=== PATIENT | male | born 1955 | race Caucasian/White ===

== ENCOUNTER 2019-12-11 15:57 | Emergency (ER) | payer SELFPAY ==
[2019-12-11] MEDS ORDERED: LORazepam TAB(*) 1 MG PO ONE (16:12)
[2019-12-11] MEDS ORDERED: Acetaminophen TAB* 325 MG PO ONE (16:16)
[2019-12-11] MEDS ORDERED: Lorazepam PYXIS KEY PRN (16:19)
[2019-12-11] MEDS ORDERED: LORazepam INJ* 2 MG/ML 1 ML VIAL IV PUSH ONE (16:19)
[2019-12-11] MEDS ORDERED: NS 0.9% 1000 ML** 1,000 ML IV ONE (16:20)
[2019-12-11] MEDS ORDERED: Lorazepam PYXIS KEY ONE (16:21)
--- NOTE | 2019-12-11 16:38 | ED ---
HPI Chest Pain - HPI Summary HPI Summary: Pt is a 64yo M with a hx of anxiety presenting to the ED with chest pain, L sided head pain, L sided arm pain and L leg pain. He states symptoms have been present x 4 years since his mother . He states sxs have been intermittent. He was also sent here to assess for confusion, however denies this and does not appear to be confused for provider. He states he believes this to be anxiety. He had a 2 day stay on the cardiac unit at [facility] 12/01-12/03 with a full negative workup including CT scan and cardiac workup (per patient. ) Pt states he feels this is anxiety and when his symptoms become worse, his body reacts with pain. Takes tylenol for pain daily and hydroxyzine for anxiety. Uses a walker and a cane daily for being "off-balanced" for several years. - History of Current Complaint Chief Complaint: EDChestWallPain Time Seen by Provider: 12/11/19 15:59 Hx Obtained From: Patient Onset/Duration: Started Hours Ago Timing: Constant Current Severity: Mild Pain Intensity: 9 Pain Scale Used: 0-10 Numeric Chest Pain Radiates: No Aggravating Factor(s): Nothing Alleviating Factor(s): Nothing - Risk Factors Pulmonary Embolism Risk Factors: Negative TAD Risk Factors: Negative - Allergy/Home Medications Allergies/Adverse Reactions: Allergies Allergy/AdvReac Type Severity Reaction Status Date / Time morphine Allergy See Comment Verified 12/11/19 17:21 sulfamethoxazole Allergy See Comment Verified 12/11/19 17:21 [From Bactrim] trimethoprim [From Bactrim] Allergy See Comment Verified 12/11/19 17:21 Home Medications: Home Medications Acetaminophen [Acetaminophen Extra Strength] 1,000 mg PO Q6HR PRN 12/11/19 [ History Confirmed 12/11/19] Aspirin EC TAB* [Ecotrin EC Low Dose 81 MG*] 81 mg PO DAILY 12/11/19 [History Confirmed 12/11/19] DULoxetine DR CAP* [Cymbalta CAP*] 20 mg PO DAILY 12/11/19 [History Confirmed ] Tamsulosin CAP* [Flomax CAP*] 0.4 mg PO DAILY 12/11/19 [History Confirmed ] hydrALAZINE TAB* [Apresoline TAB*] 50 mg PO Q8HR 12/11/19 [History Confirmed ] PMH/Surg Hx/FS Hx/Imm Hx Previously Healthy: Yes Endocrine/Hematology History: Denies: Hx Diabetes Cardiovascular History: Denies: Hx Congestive Heart Failure, Hx Hypertension Respiratory History: Denies: Hx Asthma - Surgical History Surgery Procedure, Year, and Place: right lung surgery 2001, hernia repair - Immunization History Hx Pertussis Vaccination: No Infectious Disease History: No Infectious Disease History: Reports: 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, back, chest dx at [facility] Denies: Traveled Outside the [place] in Last 30 Days - Social History Occupation: Unemployed Lives: With Family Alcohol Use: Occasionally Hx Substance Use: No Substance Use Type: Reports: Excessive Caffeine Hx Tobacco Use: No Smoking Status (MU): Former Smoker Review of Systems Negative: Fever, Chills, Fatigue, Skin Diaphoresis Positive: Chest Pain Negative: Shortness Of Breath, Cough Negative: Arthralgia, Myalgia Skin: Negative Neurological/Mental Status: Negative All Other Systems Reviewed And Are Negative: Yes Physical Exam Triage Information Reviewed: Yes Vital Signs On Initial Exam: Initial Vitals Temp Pulse Resp BP Pulse Ox 97.5 F 59 22 163/86 99 12/11/19 16:07 12/11/19 16:07 12/11/19 16:07 12/11/19 16:07 12/11/19 16:07 Vital Signs Reviewed: Yes Appearance: Positive: Well-Appearing, Well-Nourished Skin: Positive: Warm, Skin Color Reflects Adequate Perfusion Head/Face: Positive: Normal Head/Face Inspection Eyes: Positive: EOMI, JASMIN, Conjunctiva Clear Neck: Positive: Supple, No Lymphadenopathy Respiratory/Lung Sounds: Positive: Clear to Auscultation, Breath Sounds Present Cardiovascular: Positive: Pulses are Symmetrical in both Upper and Lower Extremities Musculoskeletal: Positive: Normal, Limited @ Neurological: Positive: Sensory/Motor Intact, Alert, Oriented to Person Place, Time, Reflexes Intact, Normal Gait, Facial Symmetry. Negative: Disoriented, Slurred Speech Psychiatric: Positive: Normal, Affect/Mood Appropriate AVPU Assessment: Alert Procedures - Sedation Patient Received Moderate/Deep Sedation with Procedure: No Diagnostics - Vital Signs Vital Signs Temp Pulse Resp BP Pulse Ox 12/11/19 16:20 59 19 97 12/11/19 16:07 97.5 F 56 21 163/86 99 - Laboratory Result Diagrams: 12/11/19 16:29 12/11/19 16:29 Lab Statement: Any lab studies that have been ordered have been reviewed, and results considered in the medical decision making process. Chest Pain Course/Dx - Course Course Of Treatment: Labs obtained including a troponin of 0.00. EKG obtained which shows a sinus bradycardia. Patient was given Ativan 0.5 and fluids. Labs are WNL. Pt had a full cardiac workup last week at [facility] and HEART SCORE = low. Pt discharged with dx of pain and anxiety. No evidence of confusion. Pt states he feels at his baseline, however d/t the anxiety attacks (2) last night, his healthcare worker and sister were concerned with stroke or seizure. No hx of seizures or strokes. No facial droop noted. No neuro sxs. Pt discharged in good condition. Will f/u with PCP. - Diagnoses Provider Diagnoses: Pain, Anxiety - Critical Care Time Critical Care Statement: Critical care time is provided exclusive of any time spent performing procedures. Discharge ED - Sign-Out/Discharge Documenting (check all that apply): Patient Departure - Discharge Plan Condition: Stable Disposition: HOME Patient Education Materials: Anxiety (ED) Referrals: Jake Gramajo MD [Medical Doctor] - No Primary Care Phys,NOPCP [Primary Care Provider] - Additional Instructions: Continue with your anxiety medication at home Please follow up with neurology regarding your L sided pain and weakness that has been present for several years You have no evidence of stroke like symptoms or seizure activity as discussed Your lab work on todays visit was OK I recommend following up with your PCP as well - as soon as possible (next week) - Billing Disposition and Condition Condition: STABLE Disposition: Home
[2019-12-11 16:53] LABS: ABS Basophils 0.1 10^3/ul (0-0.2); ABS Eosinophils 0.1 10^3/ul (0-0.6); ABS Lymphocytes 0.7 10^3/ul (1.0-4.8); ABS Monocytes 0.2 10^3/ul (0-0.8); ABS Neutrophils 2.7 10^3/ul (1.5-7.7); Eosinophil % 2.4 %; Hematocrit 35 % (42-52); Hemoglobin 12.2 g/dL (14.0-18.0); Lymphocyte % 19.3 %; Mean Corpuscular HGB Conc 35 g/dL (31-36); Mean Corpuscular Hemoglobin 32 pg (27-31); Mean Corpuscular Volume 93 fL (80-94); Mean Platelet Volume 7.4 fL (7.4-10.4); Platelet Count 225 10^3/uL (150-450); Red Blood Count 3.79 10^6 /uL (4.18-5.48); Red Cell Distribution Width 14 % (10-15); White Blood Count 3.8 10^3/uL (3.5-10.8)
[2019-12-11 17:11] LABS: Albumin 3.7 g/dL (3.2-5.2); Albumin/Globulin Ratio 1.9 (1-3); BUN/Creatinine Ratio 15.9 (8-20); Calcium 8.3 mg/dL (8.6-10.3); EGFR African American 105.2 (>60); EGFR Non-African American 86.9 (>60); Total Bilirubin 0.6 mg/dL (0.2-1.0); Total Protein 5.7 g/dL (6.4-8.9)
[2019-12-11 17:24] VITALS: BP 134/73
== END 2019-12-11 17:22 | disposition home or self-care (01) ==
LOC: ED 15:57
DX: F41.9 Anxiety disorder, unspecified (principal); R07.9 Chest pain, unspecified; R51 Headache; M79.602 Pain in left arm; M79.605 Pain in left leg; Z88.6 Allergy status to analgesic agent; Z88.2 Allergy status to sulfonamides; Z79.82 Long term (current) use of aspirin; Z86.14 Personal history of Methicillin resistant Staphylococcus aureus infection; Z87.891 Personal history of nicotine dependence; R94.31 Abnormal electrocardiogram [ECG] [EKG]
CPT/HCPCS: 36415; 80053; 84484; 85025; 93005; 96361; 96374; 99283; A9270-GY; J2060

== ENCOUNTER 2022-10-14 05:10 | Observation (INO) ==
[2022-10-14] MEDS ORDERED: Aspirin EC 81 mg TAB.EC (enteric coated) PO SCH (09:00)
[2022-10-14] MEDS ORDERED: Isosorbide Mononit ER 30mg TAB PO SCH (09:00)
[2022-10-14] MEDS ORDERED: Ondansetron 4 mg VIAL 2 MG/ML 2 ml VIAL IV PRN (12:21)
[2022-10-14] MEDS: NS 0.9% 1000 ml BAG 1,000 ML IV SCH ×2 (12:55→21:05)
[2022-10-14] MEDS ORDERED: NS 0.9% IV ONE ×2 (20:20→20:50)
[2022-10-14] MEDS: Atropine 1 MG/ML INJ 1 ML VIAL IV PUSH PRN (21:06)
[2022-10-14] MEDS: Heparin 5000 UNITS/ML 1 mL VIAL SUBCUT SCH (21:46)
[2022-10-14 22:09] LABS: Calcium 8.2 mg/dL (8.6-10.3); Creatinine, Serum 1.1 mg/dL (0.67-1.17); Magnesium 1.8 mg/dL (1.9-2.7); Potassium 4.3 mmol/L (3.5-5.0); eGFR CKD-EPI 73.1 (>60)
[2022-10-14] MEDS ORDERED: Magnesium Sulfate 2 gm BAG 2 GM/50 ML BAG IVPB ONE (22:12)
[2022-10-14 22:52] LABS: High Sensitivity Troponin 1 Hr 29 pg/mL (<20)
[2022-10-15] MEDS ORDERED: NS 0.9% 500 ml BAG 500 ML IV ONE (02:54)
[2022-10-15] MEDS: Atropine 1 MG/ML INJ 1 ML VIAL IV PUSH PRN (03:16)
[2022-10-15] MEDS: NS 0.9% 1000 ml BAG 1,000 ML IV SCH (04:19)
[2022-10-15 06:22] LABS: ABS Basophils 0.1 10^3/ul (0-0.2); ABS Eosinophils 0.2 10^3/ul (0-0.6); ABS Monocytes 0.4 10^3/ul (0-0.8); ABS Neutrophils 3.4 10^3/ul (1.5-7.7); Eosinophil % 3.7 %; Hematocrit 38 % (42-52); Hemoglobin 12.9 g/dL (14.0-18.0); Lymphocyte % 19.7 %; Mean Corpuscular HGB Conc 34 g/dL (31-36); Mean Corpuscular Hemoglobin 31 pg (27-31); Mean Corpuscular Volume 93 fL (80-94); Mean Platelet Volume 8.3 fL (7.4-10.4); Platelet Count 161 10^3/uL (150-450); Red Blood Count 4.13 10^6 /uL (4.18-5.48); Red Cell Distribution Width 13 % (10-15)
[2022-10-15 06:27] LABS: INR 1.25 (0.88-1.18)
[2022-10-15 07:35] VITALS: BP 109/42
[2022-10-15 07:42] LABS: Calcium 8.3 mg/dL (8.6-10.3)
[2022-10-15 07:48] LABS: Creatinine, Serum 1.13 mg/dL (0.67-1.17); eGFR CKD-EPI 70.8 (>60)
[2022-10-15 08:14] LABS: TSH Ultra Thyroid Stim Horm 6.62 mcIU/mL (0.34-5.60)
[2022-10-15 08:27] LABS: Potassium 4.5 mmol/L (3.5-5.0)
[2022-10-15] MEDS ORDERED: Enoxaparin 40 MG/0.4 ML SYR SUBCUT SCH (09:00)
[2022-10-15 11:40] LABS: PSA Screening Total 1.25 ng/mL (0-4.000)
[2022-10-15] MEDS: Heparin 5000 UNITS/ML 1 mL VIAL SUBCUT SCH (11:42)
[2022-10-15 11:49] LABS: Theophylline 5.6 mcg/mL (10-20.0)
== END 2022-10-15 16:13 | disposition left against medical advice (07) ==
LOC: EDHOLD 05:10 → ED 05:10 → SUATTDRO 06:13 → MEDTELE 12:41
PROVIDERS: ADMIT Hospitalist; ATTEND Internal Medicine

== ENCOUNTER 2022-10-17 18:10 | Inpatient (IN) ==
[2022-10-17 18:34] LABS: Hematocrit 32 % (42-52); Hemoglobin 11.2 g/dL (14.0-18.0); Mean Corpuscular HGB Conc 35 g/dL (31-36); Mean Corpuscular Hemoglobin 32 pg (27-31); Mean Corpuscular Volume 92 fL (80-94); Mean Platelet Volume 7.9 fL (7.4-10.4); Platelet Count 140 10^3/uL (150-450); Red Blood Count 3.52 10^6 /uL (4.18-5.48); Red Cell Distribution Width 13 % (10-15); White Blood Count 8.3 10^3/uL (3.5-10.8)
[2022-10-17 18:48] LABS: INR 1.59 (0.88-1.18)
[2022-10-17 19:03] LABS: ABS Eosinophils 0.1 10^3/ul (0-0.6); ABS Lymphocytes 0.7 10^3/ul (1.0-4.8); ABS Monocytes 0.7 10^3/ul (0-0.8); ABS Neutrophils 6.8 10^3/ul (1.5-7.7); Eosinophil % 0.8 %; Lymphocyte % 8.8 %
[2022-10-17 19:22] LABS: Albumin 3.6 g/dL (3.2-5.2); Calcium 8.3 mg/dL (8.6-10.3); Creatinine, Serum 1.25 mg/dL (0.67-1.17); Globulin 1.8 g/dL (2-4); Potassium 4.1 mmol/L (3.5-5.0); Total Bilirubin 0.6 mg/dL (0.2-1.0); Total Protein 5.4 g/dL (6.4-8.9); eGFR CKD-EPI 62.7 (>60)
[2022-10-17 20:10] LABS: High Sensitivity Troponin 1 Hr 10 pg/mL (<20)
[2022-10-17] MEDS ORDERED: Heparin 5000 UNITS/ML 1 mL VIAL SUBCUT ONE (21:55)
[2022-10-17 21:58] LABS: Urine Appearance Turbid; Urine Bilirubin Negative (Negative); Urine Blood 3+ (Negative); Urine Color Yellow; Urine Glucose Negative (Negative); Urine Ketones Trace (Negative); Urine Nitrite Positive (Negative); Urine Protein 2+(100 mg/dL) (Negative); Urine Specific Gravity 1.013 (1.002-1.030); Urine Urobilinogen Negative (Negative)
[2022-10-17] MEDS ORDERED: Senna TAB 8.6 mg TAB PO PRN (21:58)
[2022-10-17 22:03] LABS: Urine Bacteria Absent (Absent); Urine Red Blood Cell 3+(>10/hpf) (Absent); Urine White Blood Cell 3+(>20/hpf) (Absent)
[2022-10-18 07:17] LABS: CO2 Carbon Dioxide 18 mmol/L (22-32); Calcium 8.7 mg/dL (8.6-10.3); Chloride 110 mmol/L (101-111); Sodium 137 mmol/L (135-145)
[2022-10-18 07:23] LABS: Blood Urea Nitrogen 25 mg/dL (6-24); Glucose 79 mg/dL (70-100); Total Iron Binding Capacity 284 mcg/dL (250-450); Transferrin 203 mg/dL (203-362); eGFR CKD-EPI 73.1 (>60)
[2022-10-18 07:26] LABS: Anion Gap 9 mmol/L (2-11)
[2022-10-18] MEDS: cefTRIAXone 1 gm/50 mL D5W 1 GM/50 ML BAG IV SCH (08:27)
[2022-10-18] MEDS ORDERED: Atropine 0.4 MG/ML INJ 0.4 MG/ML VIAL IM PRN (09:51)
[2022-10-18 11:17] LABS: AST Redraw 16 U/L (13-39); Potassium Redraw 4.2 mmol/L (3.5-5.0); Total Iron Binding Capacity 260 mcg/dL (250-450); Transferrin 186 mg/dL (203-362)
[2022-10-18 11:29] LABS: Ferritin 70.7 ng/mL (24-336)
[2022-10-18 11:32] LABS: Folate > 20.00 ng/mL (5.90-24.80)
[2022-10-18 11:33] LABS: Vitamin B12 592 pg/mL (180-914)
[2022-10-18 11:54] LABS: % Iron Saturation 8 % (15-55); Iron < 20 ug/dL (50-212); Unsaturated Iron Binding 240 ug/dL
[2022-10-19] MEDS ORDERED: NS 0.9% 1000 ml BAG 1,000 ML IV SCH (02:00)
[2022-10-19 07:25] LABS: ABS Eosinophils 0.2 10^3/ul (0-0.6); ABS Lymphocytes 0.7 10^3/ul (1.0-4.8); ABS Monocytes 0.4 10^3/ul (0-0.8); ABS Neutrophils 3.8 10^3/ul (1.5-7.7); Hematocrit 39 % (42-52); Hemoglobin 12.8 g/dL (14.0-18.0); Lymphocyte % 13.8 %; Mean Corpuscular HGB Conc 33 g/dL (31-36); Mean Corpuscular Hemoglobin 32 pg (27-31); Mean Corpuscular Volume 96 fL (80-94); Mean Platelet Volume 8.3 fL (7.4-10.4); Nucleated Red Blood Cells % 0.1; Platelet Count 141 10^3/uL (150-450); Red Blood Count 4.03 10^6 /uL (4.18-5.48); Red Cell Distribution Width 13 % (10-15); White Blood Count 5.2 10^3/uL (3.5-10.8)
[2022-10-19] MEDS ORDERED: Midazolam 5 mg/5 ml VIAL 1 mg/ml 5 ml VIAL (5 mg) ONE (07:30)
[2022-10-19] MEDS ORDERED: fentaNYL 100 mcg/2 ml 50 MCG/ML VIAL ONE (07:30)
[2022-10-19] MEDS ORDERED: Lidocaine 1% VIAL 10 MG/ML VIAL 30 ML ONE (07:31)
[2022-10-19 07:37] LABS: HIV 4th Generation Nonreactive (Nonreactive)
[2022-10-19] MEDS ORDERED: Iohexol 300 (CONTRAST) 10 ML SDV ONE (07:41)
[2022-10-19 07:50] LABS: Calcium 8.7 mg/dL (8.6-10.3); Creatinine, Serum 0.81 mg/dL (0.67-1.17); Magnesium 1.8 mg/dL (1.9-2.7); Potassium 4.3 mmol/L (3.5-5.0)
[2022-10-19] MEDS ORDERED: ceFAZolin 2 GM in NS PREMIX 2 GM/100 ML BAG IVPB ONE (08:00)
[2022-10-19] MEDS ORDERED: Magnesium Sulfate 2 gm BAG 2 GM/50 ML BAG IVPB ONE (08:02)
[2022-10-19] MEDS: Azithromycin 500 mg/250 ml NS 500 MG/250 ML BAG IVPB SCH (12:32)
[2022-10-19] MEDS: cefTRIAXone 1 gm/50 mL D5W 1 GM/50 ML BAG IV SCH (12:45)
[2022-10-19] MEDS ORDERED: D5W 1000 ml BAG 1,000 ML IV SCH (15:00)
[2022-10-19] MEDS: D5W 1000 ml BAG 1,000 ML IV SCH (15:33)
[2022-10-19 15:37] LABS: Insulin 4.5 mcIU/mL (2.0-16.0)
[2022-10-19] MEDS ORDERED: cefTRIAXone 1 gm/50 mL D5W 1 GM/50 ML BAG IV SCH (16:00)
[2022-10-19] MEDS: Enoxaparin 40 MG/0.4 ML SYR SUBCUT SCH (18:16)
[2022-10-20 06:36] LABS: Calcium 8.4 mg/dL (8.6-10.3); Creatinine, Serum 1.01 mg/dL (0.67-1.17); Potassium 4.5 mmol/L (3.5-5.0)
[2022-10-20] MEDS: Azithromycin 500 mg/250 ml NS 500 MG/250 ML BAG IVPB SCH (08:22)
[2022-10-20 10:12] LABS: Phosphorus 3.6 mg/dL (2.5-5.0)
[2022-10-20] MEDS: D5W 1000 ml BAG 1,000 ML IV SCH (11:29)
[2022-10-20] MEDS ORDERED: Vancomycin per Pharmacy 1 EA NOTE FOLLOW UP PRN (13:03)
[2022-10-20] MEDS ORDERED: D5W 1000 ml BAG 1,000 ML IV SCH (13:19)
[2022-10-20] MEDS ORDERED: Vancomycin 750 MG in NS 0.9% 250 ML IVPB ONE (14:00)
[2022-10-20] MEDS: Enoxaparin 40 MG/0.4 ML SYR SUBCUT SCH ×2 (16:27→18:04)
[2022-10-21] MEDS: Vancomycin 750 MG in NS 0.9% 250 ML IVPB SCH ×2 (06:02→17:22)
[2022-10-21] MEDS ORDERED: Cosyntropin 0.25 MG VIAL IV ONE (07:00)
[2022-10-21] MEDS: Azithromycin 500 mg/250 ml NS 500 MG/250 ML BAG IVPB SCH (07:57)
[2022-10-21 09:01] LABS: ABS Eosinophils 0.2 10^3/ul (0-0.6); ABS Lymphocytes 0.8 10^3/ul (1.0-4.8); ABS Monocytes 0.5 10^3/ul (0-0.8); ABS Neutrophils 6.7 10^3/ul (1.5-7.7); Eosinophil % 1.9 %; Hematocrit 37 % (42-52); Hemoglobin 12.7 g/dL (14.0-18.0); Lymphocyte % 9.3 %; Mean Corpuscular HGB Conc 34 g/dL (31-36); Mean Corpuscular Hemoglobin 31 pg (27-31); Mean Corpuscular Volume 91 fL (80-94); Mean Platelet Volume 7.1 fL (7.4-10.4); Platelet Count 172 10^3/uL (150-450); Red Blood Count 4.05 10^6 /uL (4.18-5.48); Red Cell Distribution Width 13 % (10-15); White Blood Count 8.2 10^3/uL (3.5-10.8)
[2022-10-21 09:07] LABS: Calcium 8.5 mg/dL (8.6-10.3); Creatinine, Serum 0.87 mg/dL (0.67-1.17); Magnesium 1.8 mg/dL (1.9-2.7); Potassium 4.6 mmol/L (3.5-5.0)
[2022-10-21 09:25] LABS: Free T4 1.08 ng/dL (0.61-1.12)
[2022-10-21 09:33] LABS: C Reactive Protein 73.67 mg/L (<8.01)
[2022-10-21] MEDS ORDERED: Magnesium Sulfate IV 3 GM in NS 0.9% 100 ml BAG 100 ML IVPB ONE (14:08)
[2022-10-21 15:23] LABS: Rapid COVID-19 Molecular Undetected (Undetected)
[2022-10-21 16:26] LABS: Beta Hydroxy Butyrate <0.1 mmol/L (<0.4)
[2022-10-22 05:37] LABS: ABS Eosinophils 0.2 10^3/ul (0-0.6); ABS Lymphocytes 0.9 10^3/ul (1.0-4.8); ABS Monocytes 0.5 10^3/ul (0-0.8); ABS Neutrophils 3.4 10^3/ul (1.5-7.7); Eosinophil % 4.5 %; Hematocrit 33 % (42-52); Hemoglobin 11.1 g/dL (14.0-18.0); Lymphocyte % 18.6 %; Mean Corpuscular HGB Conc 34 g/dL (31-36); Mean Corpuscular Hemoglobin 31 pg (27-31); Mean Corpuscular Volume 92 fL (80-94); Mean Platelet Volume 6.8 fL (7.4-10.4); Platelet Count 164 10^3/uL (150-450); Red Blood Count 3.54 10^6 /uL (4.18-5.48); Red Cell Distribution Width 13 % (10-15); White Blood Count 5.1 10^3/uL (3.5-10.8)
[2022-10-22] MEDS: Vancomycin 750 MG in NS 0.9% 250 ML IVPB SCH ×2 (06:10→20:25)
[2022-10-22 06:12] LABS: Calcium 8.5 mg/dL (8.6-10.3); Creatinine, Serum 0.88 mg/dL (0.67-1.17); Potassium 4.7 mmol/L (3.5-5.0); eGFR CKD-EPI 93.7 (>60)
[2022-10-22 08:45] LABS: Magnesium 2.4 mg/dL (1.9-2.7)
[2022-10-22] MEDS ORDERED: Vancomycin Trough Check NOTE FOLLOW UP ONE (17:30)
[2022-10-22 19:13] LABS: Creatinine, Serum 1.21 mg/dL (0.67-1.17); Vancomycin Trough 13.8 mcg/mL; eGFR CKD-EPI 65.2 (>60)
[2022-10-23 06:22] LABS: ABS Basophils 0.1 10^3/ul (0-0.2); ABS Eosinophils 0.3 10^3/ul (0-0.6); ABS Lymphocytes 0.9 10^3/ul (1.0-4.8); ABS Monocytes 0.6 10^3/ul (0-0.8); ABS Neutrophils 3.9 10^3/ul (1.5-7.7); Eosinophil % 4.6 %; Hematocrit 31 % (42-52); Hemoglobin 10.8 g/dL (14.0-18.0); Lymphocyte % 15.4 %; Mean Corpuscular HGB Conc 35 g/dL (31-36); Mean Corpuscular Hemoglobin 32 pg (27-31); Mean Corpuscular Volume 92 fL (80-94); Mean Platelet Volume 7.1 fL (7.4-10.4); Platelet Count 178 10^3/uL (150-450); Red Blood Count 3.39 10^6 /uL (4.18-5.48); Red Cell Distribution Width 13 % (10-15); White Blood Count 5.7 10^3/uL (3.5-10.8)
[2022-10-23] MEDS: Vancomycin 750 MG in NS 0.9% 250 ML IVPB SCH ×2 (06:24→20:32)
[2022-10-23 06:38] LABS: Calcium 8.5 mg/dL (8.6-10.3); Creatinine, Serum 1.01 mg/dL (0.67-1.17)
[2022-10-23 06:39] LABS: Potassium 5.1 mmol/L (3.5-5.0)
[2022-10-23] MEDS ORDERED: Enoxaparin 40 MG/0.4 ML SYR SUBCUT SCH (14:00)
[2022-10-23 18:07] LABS: Rapid COVID-19 Molecular Undetected (Undetected)
[2022-10-24] MEDS ORDERED: Vancomycin Trough Check NOTE FOLLOW UP ONE (05:30)
[2022-10-24 06:49] LABS: C Reactive Protein 50.45 mg/L (<8.01); Calcium 8.5 mg/dL (8.6-10.3); Creatinine, Serum 0.97 mg/dL (0.67-1.17); Potassium 4.9 mmol/L (3.5-5.0)
[2022-10-24 06:52] LABS: Creatinine, Serum 0.96 mg/dL (0.67-1.17); Vancomycin Trough 17.2 mcg/mL; eGFR CKD-EPI 86.1 (>60)
[2022-10-24] MEDS: Vancomycin 750 MG in NS 0.9% 250 ML IVPB SCH (07:49)
[2022-10-24 10:15] VITALS: BP 146/71
[2022-10-24 17:49] LABS: ACTH <5.0 pg/mL
[2022-10-27 12:09] LABS: IGF1 Z-score 0.67 SD
== END 2022-10-24 10:50 | DRG 258 ==
LOC: ED 18:10 → EDHOLD 18:10 → SUATTDRO 20:51 → MEDTELE 10-18 16:03 → SUATTDRO 10-19 14:07
PROVIDERS: ADMIT Internal Medicine; ATTEND Internal Medicine